=== PATIENT | male | born 1975 | race Caucasian/White ===

== ENCOUNTER 2017-03-26 10:24 | Emergency (ER) | payer SELFPAY ==
[~2017-03-26] VITALS: Ht 157.5 cm; Wt 123.0 kg
[2017-03-26] MEDS ORDERED: KETOROLAC 60MG/2ML VIAL IM ONE (12:30)
[2017-03-26 13:38] VITALS: BP 131/78
== END 2017-03-26 13:40 | disposition home or self-care (01) ==
LOC: ER 10:24
DX: L03.116 Cellulitis of left lower limb (principal); I10 Essential (primary) hypertension; E11.9 Type 2 diabetes mellitus without complications; F17.200 Nicotine dependence, unspecified, uncomplicated
CPT/HCPCS: 96372; 99283; J1885

== ENCOUNTER 2017-06-17 17:12 | Emergency (ER) | payer SELFPAY ==
[~2017-06-17] VITALS: Ht 162.6 cm; Wt 127.0 kg
[2017-06-17 17:35] VITALS: BP 153/95
== END 2017-06-17 18:37 | disposition home or self-care (01) ==
LOC: ER 17:12
DX: L03.115 Cellulitis of right lower limb (principal); I10 Essential (primary) hypertension; F17.200 Nicotine dependence, unspecified, uncomplicated; E11.9 Type 2 diabetes mellitus without complications
CPT/HCPCS: 99283